=== PATIENT | male | born 1965 | race Caucasian/White ===

== ENCOUNTER 2017-08-03 08:01 | Emergency (ER) | payer SELFPAY ==
[~2017-08-03] VITALS: Ht 188 cm; Wt 86.2 kg
[~2017-08-03 08:01] MED LIST: DIA5 PO; ONDA8TAB94 PO
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
[2017-08-03 08:30] VITALS: BP 148/97
[2017-08-03 08:40] LABS: PLATELET COUNT, AUTOMATED 265 K/uL (150-450)
[2017-08-03] MEDS ORDERED: ASCO-182 PO (14:27)
[2017-08-03] MEDS ORDERED: SAW450CA3 PO (14:27)
[2017-08-03] MEDS ORDERED: MULT1TAB54 PO (14:27)
[2017-08-03] MEDS ORDERED: CHOL10005 PO (14:27)
[2017-08-03] MEDS ORDERED: MELA1TAB23 PO (14:27)
[2017-08-03] MEDS ORDERED: MAGN400T10 (14:27)
[2017-08-03] MEDS ORDERED: DIPH-740 PO (14:27)
[2017-08-03] MEDS ORDERED: OMEG-24 PO (14:27)
[2017-08-03] MEDS ORDERED: GLUC-198 PO (14:28)
[2017-08-04] MEDS ORDERED: NICO-218 TD (15:26)
[2017-08-04] MEDS ORDERED: BUPR-133 PO (15:28)
[2017-08-04] MEDS ORDERED: BUPR-136 PO (15:28)
== END 2017-08-03 10:35 ==
LOC: ER 08:04
DX: F32.9 Major depressive disorder, single episode, unspecified (principal)
CPT/HCPCS: 36415; 80305; 80320; 80329; 81001; 82040; 82247; 82310; 82374; 82435; 82565; 82947; 83735; 84075; 84132; 84155; 84295; 84443; 84450; 84460; 84520; 85025; 99284

== ENCOUNTER 2017-08-03 10:22 | Inpatient (IN) | payer SELFPAY ==
[~2017-08-03] VITALS: Ht 188 cm; Wt 86.2 kg
[2017-08-03 11:45] VITALS: BP 132/90
[2017-08-03] MEDS ORDERED: OMEG-24 PO (14:27)
[2017-08-03] MEDS ORDERED: MELA1TAB23 PO (14:27)
[2017-08-03] MEDS ORDERED: MULT1TAB54 PO (14:27)
[2017-08-03] MEDS ORDERED: ASCO-182 PO (14:27)
[2017-08-03] MEDS ORDERED: DIPH-740 PO (14:27)
[2017-08-03] MEDS ORDERED: CHOL10005 PO (14:27)
[2017-08-03] MEDS ORDERED: SAW450CA3 PO (14:27)
[2017-08-03] MEDS ORDERED: MAGN400T10 (14:27)
[2017-08-03] MEDS ORDERED: GLUC-198 PO (14:28)
[2017-08-03] MEDS ORDERED: MAG HYD/AL HYD/SIMETH 30ML UDC PO PRN (15:35)
[2017-08-03] MEDS: NICOTINE 21 MG/24 HR PATCH TD SCH (15:52)
[2017-08-03] MEDS ORDERED: MELATONIN 3 MG TAB PO SCH (21:00)
[2017-08-03] MEDS ORDERED: diphenhydrAMINE 25 MG CAP PO SCH (21:00)
[2017-08-03 23:39] VITALS: BP 121/61
[2017-08-04 06:13] LABS: PLATELET COUNT, AUTOMATED 239 K/uL (150-450)
[2017-08-04 06:20] VITALS: BP 112/68
[2017-08-04] MEDS: NICOTINE 21 MG/24 HR PATCH TD SCH (08:14)
[2017-08-04] MEDS ORDERED: PATCH REMOVAL 1 EA TP SCH (09:00)
[2017-08-04] MEDS ORDERED: MULTIVITAMINS TAB PO SCH (09:00)
[2017-08-04] MEDS ORDERED: buPROPion SR 100 MG TABSR PO SCH (11:15)
[2017-08-04 12:35] VITALS: BP 128/89
[2017-08-04] MEDS ORDERED: NICO-218 TD (15:26)
[2017-08-04] MEDS ORDERED: BUPR-136 PO (15:28)
[2017-08-04] MEDS ORDERED: BUPR-133 PO (15:28)
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
[2017-08-04] MEDS ORDERED: traZODone HCL 50 MG TAB PO SCH (21:00)
== END 2017-08-04 15:42 | disposition home or self-care (01) | DRG 897 ==
LOC: BHS 10:22
PROVIDERS: ADMIT Psychiatry & Neurology Psychiatry; ATTEND Psychiatry & Neurology Psychiatry
DX: F15.94 Other stimulant use, unspecified with stimulant-induced mood disorder (principal); R45.851 Suicidal ideations; F43.21 Adjustment disorder with depressed mood; F10.21 Alcohol dependence, in remission; Z91.5 Personal history of self-harm; Y90.0 Blood alcohol level of less than 20 mg/100 ml
CPT/HCPCS: 36415; 82040; 82247; 82310; 82374; 82435; 82565; 82947; 83036; 84075; 84132; 84155; 84295; 84450; 84460; 84520; 85025; Q0163

== ENCOUNTER 2017-10-04 10:59 | Emergency (ER) | payer SELFPAY ==
[~2017-10-04 10:59] MED LIST changes: +ASCO-182 PO; +BUPR-133 PO; +BUPR-136 PO; +CHOL10005 PO; +DIPH-740 PO; +GLUC-198 PO; +MAGN400T10; +MELA1TAB23 PO; +MULT1TAB54 PO; +NICO-218 TD; +OMEG-24 PO; +SAW450CA3 PO
[2017-10-04 11:06] VITALS: BP 133/95
[2017-10-04] MEDS ORDERED: KETOROLAC 60 MG/2 ML VIAL IM ONE (11:20)
--- NOTE | 2017-10-04 11:40 | ER Report ---
History and Physical Time Seen By MD: 11:10 Hx. of Stated Complaint: Pt fell in the dark this morning and is complaining of left knee pain. HPI/ROS CHIEF COMPLAINT: Knee pain HISTORY OF PRESENT ILLNESS: Patient is a 52 y.o. male presenting for injury to left lower extremity. He states that he was walking outside in the dark around 0400 this morning when he tripped on a rock and fell on the knee. He states that he he has been using a baseball bat as a cane for ambulation because ambulating increases pain significantly. AROM of the knee and ankle also increase pain. Patient has not used OTC NSAIDs/Tylenol or ice application for pain. He denies being under the influence of any substances. His PMH is positive for substance abuse. Allergies: Coded Allergies: No Known Drug Allergies (Unverified , 10/04/17) Home Meds Reported Medications Bupropion Hcl (BUPROPION HCL SR) 150 Mg Tablet.er, 150 MG PO BID TAKE 150 MG AT 0900 AND AT NOON. 08/04/17 Melatonin (MELATONIN) 1 Mg Tablet, 10 MG PO PRN 08/03/17 [place]-3 Fatty Acids/Fish Oil (FISH OIL 1,200 MG SOFTGEL) 1 Each Capsule, 1 EACH PO QDAY, CAPSULE 08/03/17 Multivitamin (MULTI-VITAMIN DAILY) 1 Each Tablet, 1 EACH PO QDAY 08/03/17 Discontinued Reported Medications Nicotine (NICODERM CQ) 1 Each Patch.td24, 1 EACH TD QDAY Y for NICOTINE REPLACEMENT 08/04/17 Diphenhydramine Hcl (BENADRYL) 25 Mg Capsule, 25 MG PO PRN Y for INSOMNIA, CAPSULE 08/03/17 Past Medical/Surgical History Positive for substance abuse and seeking treatment. No prior left knee surgery or injury. Hx Smoking: Yes Smoking Status: Heavy Tobacco Smoker Exposure to Second Hand Smoke?: Yes Hx Substance Use Disorder: Yes (HX METH USE 5 DAYS AGO) Hx Alcohol Use: No Constitutional Vital Sign - Last 24 Hours 10/04/17 10/04/17 10/04/17 10/04/17 11:06 11:06 11:14 11:29 Temp 98.0 Pulse 112 108 110 Resp 14 B/P (MAP) 133/95 133/95 (108) Pulse Ox 97 95 96 O2 Delivery Room Air 10/04/17 10/04/17 11:49 12:04 Pulse 113 111 Pulse Ox 97 Physical Exam General: Patient is gowned in bed, slighted agitated Head: Atraumatic and normocephalic Resp: Lung sounds clear and equal bilaterally. No accessory muscle use. Cardiac: Tachycardic SR, normal S1 and S2, no murmurs, gallops, or rubs. Integument: Abrasion over anterior proximal tibia. Musculoskeletal: Localized edema and tenderness over left anterior proximal tibia, extending to lateral fibula. Pain with dorsiflexion. Nontender plantarflexion. Strength 5/5. Psych: Patient is anxious. Neuro: A & O x3, sensation of left LE WNL. Differentials considered for this patient are knee contusion, knee fracture, knee sprain, tib-fib fracture, tibial plateau fracture. Medical Decision Making EKG/Imaging Imaging KNEE 4 VIEW LEFT Indication: Left knee pain after fall. Comparison: None available Findings: 4 views left knee were obtained. No acute fracture or dislocation. There is a well-corticated calcific density adjacent to the lateral femoral condyle consistent previous injury. No joint effusion. No bony lesions or significant degenerative changes. Prepatellar soft tissue swelling is present. Mild lateral soft tissue swelling. IMPRESSION: 1.No acute osseous abnormality of the left knee Report Dictated By: Aryan Kilgore at 10/04/2017 11:59 AM Report E-Signed By: Aryan Kilgore at 10/04/2017 12:01 PM Exam type: TIBIA FIBULA LEFT History: fall with pain Comparison: Left knee series performed today. Findings: Two views of the left tibia and fibula reveal no evidence of acute fracture or dislocation. No lytic or blastic bone lesions are seen. No radiopaque soft tissue foreign bodies identified IMPRESSION: 1. No acute osteoarticular abnormality of the left tibia fibula seen Report Dictated By: Anne Rebollar MD at 10/04/2017 12:00 PM Report E-Signed By: Anne Rebollar MD at 10/04/2017 12:02 PM ED Course/Re-evaluation ED Course Patient was admitted to an examin room, history and physical were obtained. Differential diagnoses were considered. On examination patient has tenderness to the anterior tibia. Patient has significant amounts swelling. X-rays done of the tib-fib as well as the knee. Patient had negative x-rays. We discussed findings with patient. Discharge patient home at this time. He is to follow-up with medical staff at group home center with any concerns. Patient was placed in a Richard wrap here. Patient tolerated the procedure well without any difficulties. He is to take ibuprofen as needed for pain. Patient was also given crutches so he can limit the amount of weight that is placing on the leg which was causing worsening pain. Discusses the patient verbalized understanding and agreement with plan. Decision to Disposition Date: Oct 04, 2017 Decision to Disposition Time: 12:21 Depart Departure Latest Vital Signs Vital Signs Date Time Temp Pulse Resp B/P (MAP) Pulse Ox O2 Delivery O2 Flow Rate FiO2 10/04/17 12:04 111 97 10/04/17 11:06 133/95 (108) 10/04/17 11:06 98.0 14 Room Air Impression: Primary Impression: Contusion of knee, left Condition: Improved Disposition: HOME OR SELF-CARE Referrals: HUMERA PERAZA MD (PCP) Patient Instructions: Contusion in Adults (ED) Additional Instructions: Your diagnosis is for a left knee contusion. This should resolve with at home care. Ice at home for 20 minutes at least 4x/day Ibuprofen can be started 800 mg every 6 hours with a snack or meal. Elevated the extremity to the level of the heart at least 3x daily. Crutches provided for ambulation. Gentle range of motion of the knee and ankle as tolerated 3x daily. Follow-up with medical staff at group home center for concerns. Problem Qualifiers Primary Impression: Contusion of knee, left Encounter type: initial encounter Qualified Codes: S80.02XA - Contusion of left knee, initial encounter HELDER [place] Oct 04, 2017 11:40
--- NOTE | 2017-10-04 12:05 | RADIOLOGY IMAGING REPORT ---
FACILITY: [facility] - [place] PATIENT NAME: Nile Smith : 1965 MR: [id number] V: [id number] EXAM DATE: ORDERING PHYSICIAN: HELDER [place] TECHNOLOGIST: Location: [facility] [place] Patient: Nile Smith : 1965 Visit/Account:[id number] Date of Sevice: 10/04/2017 KNEE 4 VIEW LEFT Indication: Left knee pain after fall. Comparison: None available Findings: 4 views left knee were obtained. No acute fracture or dislocation. There is a well-corticated calcific density adjacent to the lateral femoral condyle consistent previous injury. No joint effusion. No bony lesions or significant degene rative changes. Prepatellar soft tissue swelling is present. Mild lateral soft tissue swelling. IMPRESSION: 1.No acute osseous abnormality of the left knee Report Dictated By: Aryan Kilgore at 10/04/2017 11:59 AM Report E-Signed By: Aryan Kilgore at 10/04/2017 12:01 PM WSN:[id number]
--- NOTE | 2017-10-04 12:05 | RADIOLOGY IMAGING REPORT ---
FACILITY: [facility] - [place] PATIENT NAME: Nile Smith : 1965 MR: [id number] V: [id number] EXAM DATE: [id number] ORDERING PHYSICIAN: HELDER [place] TECHNOLOGIST: Location: [facility] Patient: Nile Smith : 1965 Visit/Account:[id number] Date of Sevice: 10/04/2017 Exam type: TIBIA FIBULA LEFT History: fall with pain Comparison: Left knee series performed today. Findings: Two views of the left tibia and fibula reveal no evidence of acute fracture or dislocation. No lytic or blastic bone lesions are seen. No radiopaque soft tissue foreign bodies identified IMPRESSION: 1. No acute osteoarticular abnormality of the left tibia fibula seen Report Dictated By: Anne Rebollar MD at 10/04/2017 12:00 PM Report E-Signed By: Anne Rebollar MD at 10/04/2017 12:02 PM WSN:[email or web address]
== END 2017-10-04 12:36 | disposition home or self-care (01) ==
LOC: ER 11:06
DX: S80.02XA Contusion of left knee, initial encounter (principal); W01.0XXA Fall on same level from slipping, tripping and stumbling without subsequent striking against object, initial encounter
CPT/HCPCS: 73564; 73590; 96372; 99283; J1885